=== PATIENT | female | born 1990 | race Caucasian/White ===

== ENCOUNTER 2022-09-26 13:47 | Outpatient (CLI) | payer OTHER ==
[~2022-09-26] VITALS: Ht 157.5 cm; Wt 102.5 kg
== END 2022-09-27 10:48 | disposition home or self-care (01) ==
LOC: OBS/DEL 13:47
PROVIDERS: ATTEND Obstetrics & Gynecology
DX: O21.2 Late vomiting of pregnancy (principal); Z3A.38 38 weeks gestation of pregnancy

== ENCOUNTER 2022-09-28 10:38 | Inpatient (IN) | payer OTHER ==
[~2022-09-28] VITALS: Ht 157.5 cm; Wt 102.5 kg
[2022-09-28] MEDS ORDERED: VALTREX1000 MG PO (10:45)
[2022-09-28] MEDS ORDERED: PRENATAL TABLE1 EAC1 PO (10:45)
== END 2022-10-01 15:04 | disposition home or self-care (01) | DRG 784 ==
LOC: OB/GYN 10:38 → LDR 10:38 → O/R 15:12 → OB/GYN 18:25
PROVIDERS: ADMIT Obstetrics & Gynecology; ATTEND Obstetrics & Gynecology
PROC: 0UB70ZZ Excision of Bilateral Fallopian Tubes, Open Approach (ICD-10-PCS; 2022-09-28)
PROC: 4A1HXCZ Monitoring of Products of Conception, Cardiac Rate, External Approach (ICD-10-PCS; 2022-09-28)
PROC: 10D00Z1 Extraction of Products of Conception, Low, Open Approach (ICD-10-PCS; principal; 2022-09-28 14:00)
DX: O14.04 Mild to moderate pre-eclampsia, complicating childbirth (principal); B00.89 Other herpesviral infection; O98.52 Other viral diseases complicating childbirth; Z3A.38 38 weeks gestation of pregnancy; Z37.0 Single live birth; Z30.2 Encounter for sterilization; Z20.822 Contact with and (suspected) exposure to COVID-19